=== PATIENT | male | born 1985 | race Caucasian/White ===

== ENCOUNTER 2017-06-03 21:45 | Emergency (ER) | payer SELFPAY ==
[2017-06-03 21:55] VITALS: BP 131/72; BMI 25.0
[2017-06-03] MEDS ORDERED: XYLOCAINE 2 % (PLAIN) ONE (22:04)
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
[2017-06-03] MEDS ORDERED: XYLOCAINE 1 % (PLAIN) ONE ×3 (23:02→23:12)
[2017-06-03] MEDS ORDERED: ROCEPHIN VIAL 1 GM IM ONE (23:29)
[2017-06-03] MEDS ORDERED: ROCEPHIN VIAL 1 GM ONE (23:30)
[2017-06-03] MEDS ORDERED: BACITRACIN ZINC ONE (23:30)
[2017-06-03] MEDS ORDERED: BACTROBAN OINT TOP ONE (23:30)
== END 2017-06-03 23:41 | disposition home or self-care (01) ==
LOC: ER 21:45
PROC: 0XQKXZZ Repair Left Hand, External Approach (ICD-10-PCS; principal; 2017-06-03)
DX: S61.412A Laceration without foreign body of left hand, initial encounter (principal); X58.XXXA Exposure to other specified factors, initial encounter; Y92.512 Supermarket, store or market as the place of occurrence of the external cause
CPT/HCPCS: 12002; 96372; 99282; 99283; J0696; J2001

== ENCOUNTER 2017-06-22 02:17 | Emergency (ER) | payer OTHER ==
[2017-06-22 02:32] VITALS: BP 153/72; BMI 25.0
[2017-06-22] MEDS ORDERED: SILVADENE ONE (02:36)
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
[2017-06-22] MEDS ORDERED: MORPHINE SULFATE INJ 4 MG IM ONE (02:42)
[2017-06-22] MEDS ORDERED: MORPHINE SULFATE INJ 4 MG ONE (02:43)
[2017-06-22] MEDS ORDERED: SILVADENE TOP NR (03:00)
== END 2017-06-22 02:55 | disposition home or self-care (01) ==
LOC: ER 02:17
DX: T22.111A Burn of first degree of right forearm, initial encounter (principal); X12.XXXA Contact with other hot fluids, initial encounter; Y92.9 Unspecified place or not applicable
CPT/HCPCS: 96372; 99282; J2270